=== PATIENT | female | born 1960 | race Caucasian/White ===

== ENCOUNTER 2019-05-26 21:08 | Emergency (ER) | payer BC ==
[2019-05-26] MEDS ORDERED: Sodium Chloride 0.9% 10 ML Syringe FLUSH PRN (21:19)
[2019-05-26] MEDS ORDERED: LORazepam 2 MG/ML SDV IVPUSH ONE (21:23)
--- NOTE | 2019-05-26 21:55 | EDM.PDOC ---
ED HPI GENERAL MEDICAL PROBLEM - General Chief Complaint: Neurological Problem Time Seen by Provider: 05/26/19 21:08 Source of Information: Reports: Patient, EMS, Family History Limitations: Reports: No Limitations - History of Present Illness INITIAL COMMENTS - FREE TEXT/NARRATIVE: Pt. presents to ER with complaints of numbness/tingling in upper and lower extremities and shortness of breath. Pt. states that she was on her way to [place] from [place] because she was having troubles with increased dysarthria over the past month. 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 The hemorrhage was thought to be spontaneous and resolved without intervention. Pt. had a prolonged hospitalization with ICU stay , respiratory failure, and vent weaning at [facility] in [place]. Pt. states that she feels her speech has gotten worse over the past month. She has a tremor which has gotten worse over the past month as well. She is scheduled to see neurology next week. Today, she states that she noticed numbness and tingling in her hands and feel. She states that the symptoms got worse and the patient asked her to take her to [facility] in [place] from [place], [place]. Enroute, pt. began experiencing complaints of shortness of breath and they decided to divert to our facility. Pt. states that she has been checking her blood pressure often today and feels that it is elevated higher than normal. She states that it was in the 116/80 range. Pt. denies any new focal motor weakness. Denies any headache. Again, her complaints are mentioned above, but this has been going on for at least a month. Onset: Today Onset Date: 05/26/19 Duration: Constant Associated Symptoms: Reports: Other (numbness/tingling in extremities.) - Related Data Allergies Allergy/AdvReac Type Severity Reaction Status Date / Time Sulfa (Sulfonamide Allergy Rash Verified 05/26/19 22:07 Antibiotics) ED ROS GENERAL - Review of Systems Review Of Systems: See Below Constitutional: Reports: No Symptoms. Denies: Fever, Chills, Malaise, Weakness , Fatigue HEENT: Reports: No Symptoms Respiratory: Reports: No Symptoms Cardiovascular: Reports: No Symptoms Endocrine: Reports: No Symptoms GI/Abdominal: Reports: No Symptoms : Reports: No Symptoms Musculoskeletal: Reports: No Symptoms Skin: Reports: No Symptoms Neurological: Reports: Other (numbness/tingling in upper and lower extremities consistent with carpal-pedal spasms.) Psychiatric: Reports: Agitation, Anxiety Hematologic/Lymphatic: Reports: No Symptoms Immunologic: Reports: No Symptoms ED EXAM, GENERAL - Physical Exam Exam: See Below Exam Limited By: No Limitations General Appearance: Alert, WD/WN, No Apparent Distress Eye Exam: Bilateral Eye: EOMI, Normal Fundi, Normal Inspection, PERRL Throat/Mouth: Normal Inspection, Normal Lips, Normal Teeth, Normal Gums, Normal Oropharynx, Normal Voice, No Airway Compromise Head: Atraumatic, Normocephalic Neck: Normal Inspection, Supple, Non-Tender, Full Range of Motion Respiratory/Chest: Lungs Clear, Normal Breath Sounds, No Accessory Muscle Use, Chest Non-Tender, Other (initially complaining of short of breath. Tachypnea, no other findings noted.) Cardiovascular: Normal Peripheral Pulses, Regular Rate, Rhythm, No Edema, No Murmur Peripheral Pulses: 4+: Radial (L), Radial (R), Dorsalis Pedis (L), Dorsalis Pedis (R) GI/Abdominal: Normal Bowel Sounds, Soft, Non-Tender, No Organomegaly, No Distention, No Mass (Female) Exam: Deferred Rectal (Female) Exam: Deferred Back Exam: Normal Inspection, Full Range of Motion Extremities: Normal Inspection, Normal Range of Motion, Non-Tender, No Pedal Edema, Normal Capillary Refill Neurological: Alert, Oriented, CN II-XII Intact, Normal Cognition, Normal Gait, Sensory/Motor Deficit (numbness/tingling in extremities. Remainer of neuro exam is normal. Pt. has dysarthria but this is chronic for the patient.) Psychiatric: Normal Affect, Normal Mood Skin Exam: Warm, Dry, Intact, Normal Color, No Rash Lymphatic: No Adenopathy EKG INTERPRETATION Rhythm: NSR [place]: Normal P-Wave: Present QRS: Normal ST-T: Normal QT: Normal Course - Orders/Labs/Meds Orders: Active Orders 24 hr Category Date Time Status EKG Documentation Completion [RC] STAT Care 05/26/19 21:20 Active Head wo Cont [CT] Stat Exams 05/26/19 21:21 Taken Sodium Chloride 0.9% [Saline Flush] Med 05/26/19 21:19 Active 10 ml FLUSH ASDIRECTED PRN Peripheral IV Insertion Adult [OM.PC] Routine Oth 05/26/19 21:20 Ordered Medication Orders Sodium Chloride (Saline Flush) 10 ml FLUSH ASDIRECTED PRN PRN Reason: Keep Vein Open Labs: Laboratory Tests 05/26/19 05/26/19 05/26/19 Range/Units 21:36 21:41 21:41 WBC 7.0 (4.0-10.0) x10^3/uL RBC 4.72 (4.00-5.50) x10^6/uL Hgb 14.0 (12.0-16.0) g/dL Hct 39.7 (33.0-47.0) % MCV 84.1 (78.0-93.0) fL MCH 29.7 (26.0-32.0) pg MCHC 35.3 (32.0-36.0) g/dL RDW Coeff of Filomena 13.5 (10.0-15.0) % Plt Count 308 (130-400) x10^3/uL Neut % (Auto) 54.8 (50.0-80.0) % Lymph % (Auto) 34.6 (25.0-50.0) % [place] % (Auto) 8.3 (2.0-11.0) % Eos % (Auto) 1.7 (0.0-4.0) % Baso % (Auto) 0.6 (0.2-1.2) % PT 10.5 (10.0-12.8) SEC INR 0.9 L (2.0-3.5) Sodium (136-145) mmol/L Potassium (3.5-5.1) mmol/L Chloride (98-107) mmol/L Carbon Dioxide (21-32) mmol/L Anion Gap (10-20) mmol/L BUN (7-18) mg/dL Creatinine (0.55-1.02) mg/dL Est Cr Clr Drug Dosing Estimated GFR (MDRD) Glucose (74-106) mg/dL Calcium (8.5-10.1) mg/dL Corrected Calcium (8.5-10.1) mg/dL Phosphorus (2.6-4.7) mg/dL Magnesium (1.8-2.4) mg/dL Total Bilirubin (0.2-1.0) mg/dL AST (15-37) U/L ALT (14-59) U/L Alkaline Phosphatase (46-116) U/L Troponin I (<=0.056) ng/mL C-Reactive Protein (<=0.9) mg/dL Total Protein (6.4-8.2) g/dL Albumin (3.4-5.0) g/dL Globulin Albumin/Globulin Ratio TSH, Ultra Sensitive (0.358-3.74) uIU/mL Urine Color Yellow (YELLOW) Urine Appearance Clear (CLEAR) Urine pH 7.0 (5.0-8.0) Ur Specific [place] 1.015 Urine Protein Negative (NEGATIVE) mg/dL Urine Glucose (UA) Negative (NEGATIVE) mg/dL Urine Ketones Negative (NEGATIVE) mg/dL Urine Occult Blood Negative (NEGATIVE) Urine Nitrite Negative (NEGATIVE) Urine Bilirubin Negative (NEGATIVE) Urine Urobilinogen 0.2 (0.2) EU/dL Ur Leukocyte Esterase Trace H (NEGATIVE) Urine RBC Not seen (NOT SEEN) /HPF Urine WBC 0-5 (NOT SEEN) /HPF Ur Squamous Epith Cells Few H (NEGATIVE) /HPF Urine Bacteria Rare (NEGATIVE) /HPF Urine Mucus Not seen (NEGATIVE) /LPF 05/26/19 Range/Units 21:41 WBC (4.0-10.0) x10^3/uL RBC (4.00-5.50) x10^6/uL Hgb (12.0-16.0) g/dL Hct (33.0-47.0) % MCV (78.0-93.0) fL MCH (26.0-32.0) pg MCHC (32.0-36.0) g/dL RDW Coeff of Filomena (10.0-15.0) % Plt Count (130-400) x10^3/uL Neut % (Auto) (50.0-80.0) % Lymph % (Auto) (25.0-50.0) % [place] % (Auto) (2.0-11.0) % Eos % (Auto) (0.0-4.0) % Baso % (Auto) (0.2-1.2) % PT (10.0-12.8) SEC INR (2.0-3.5) Sodium 137 (136-145) mmol/L Potassium 2.8 L* (3.5-5.1) mmol/L Chloride 97 L (98-107) mmol/L Carbon Dioxide 27 (21-32) mmol/L Anion Gap 15.8 (10-20) mmol/L BUN 8 (7-18) mg/dL Creatinine 1.1 H (0.55-1.02) mg/dL Est Cr Clr Drug Dosing TNP Estimated GFR (MDRD) 51 Glucose 107 H (74-106) mg/dL Calcium 10.2 H (8.5-10.1) mg/dL Corrected Calcium 9.88 (8.5-10.1) mg/dL Phosphorus 2.0 L (2.6-4.7) mg/dL Magnesium 1.8 (1.8-2.4) mg/dL Total Bilirubin 0.6 (0.2-1.0) mg/dL AST 20 (15-37) U/L ALT 34 (14-59) U/L Alkaline Phosphatase 102 (46-116) U/L Troponin I < 0.017 (<=0.056) ng/mL C-Reactive Protein < 0.2 (<=0.9) mg/dL Total Protein 8.1 (6.4-8.2) g/dL Albumin 4.4 (3.4-5.0) g/dL Globulin 3.7 Albumin/Globulin Ratio 1.19 TSH, Ultra Sensitive 3.372 (0.358-3.74) uIU/mL Urine Color (YELLOW) Urine Appearance (CLEAR) Urine pH (5.0-8.0) Ur Specific [place] Urine Protein (NEGATIVE) mg/dL Urine Glucose (UA) (NEGATIVE) mg/dL Urine Ketones (NEGATIVE) mg/dL Urine Occult Blood (NEGATIVE) Urine Nitrite (NEGATIVE) Urine Bilirubin (NEGATIVE) Urine Urobilinogen (0.2) EU/dL Ur Leukocyte Esterase (NEGATIVE) Urine RBC (NOT SEEN) /HPF Urine WBC (NOT SEEN) /HPF Ur Squamous Epith Cells (NEGATIVE) /HPF Urine Bacteria (NEGATIVE) /HPF Urine Mucus (NEGATIVE) /LPF Meds: Medications Generic Name Dose Route Start Last Admin Trade Name Freq PRN Reason Stop Dose Admin Sodium Chloride 10 ml 05/26/19 21:19 Saline Flush FLUSH ASDIRECTED PRN Keep Vein Open Discontinued Medications Generic Name Dose Route Start Last Admin Trade Name Mai PRN Reason Stop Dose Admin Lorazepam 1 mg 05/26/19 21:23 05/26/19 21:50 Ativan IVPUSH 05/26/19 21:24 1 mg STAT ONE Administration Potassium Chloride 40 meq 05/26/19 22:21 05/26/19 22:43 Klor-Con 10 PO 05/26/19 22:22 40 meq ONETIME ONE Administration - Radiology Interpretation Free Text/Narrative:: CT brain negative for acute pathology Departure - Departure Time of Disposition: 22:30 Disposition: Home, Self-Care 01 Condition: Good Clinical Impression: Panic attack, Hyperventilation, Hypokalemia - Discharge Information Instructions: Potassium chloride tablets, extended-release tablets or capsules , Panic Attack, [id number] Referrals: Sandra Stone MD [Primary Care Provider] - Forms: ED Department Discharge Additional Instructions: Follow-up with neurology on Wednesday. Start potassium chloride tomorrow. We will give you a dose tonight. Take your lorazepam 0.5mg every 4-6 hours as needed for anxiety. Please call or return to ER as needed. - Problem List Review Problem List Initiated/Reviewed/Updated: Yes - My Orders Last 24 Hours: My Active Orders 05/26/19 21:19 Sodium Chloride 0.9% [Saline Flush] 10 ml FLUSH ASDIRECTED PRN 05/26/19 21:20 EKG Documentation Completion [RC] STAT Peripheral IV Insertion Adult [OM.PC] Routine 05/26/19 21:21 Head wo Cont [CT] Stat - Assessment/Plan Last 24 Hours: My Active Orders 05/26/19 21:19 Sodium Chloride 0.9% [Saline Flush] 10 ml FLUSH ASDIRECTED PRN 05/26/19 21:20 EKG Documentation Completion [RC] STAT Peripheral IV Insertion Adult [OM.PC] Routine 05/26/19 21:21 Head wo Cont [CT] Stat Plan: Pt. appeared to be having severe carpal-pedal spasms secondary to hyperventilation syndrome. This was treated with IV ativan and the symptoms resolved. Pt. is safe to discharge home. She was given 40meq of potassium chloride PO in ER, and will be started on 40meq daily starting tomorrow with plan for recheck of labs next week. Advised to return to ER if she has worsening symptoms, chest pain, shortness of breath. She was advised to keep her appointment with her neurologist to discuss her chronic symptoms. All questions were answered.
[2019-05-26 22:18] LABS: CHLORIDE,CL 97 mmol/L (98-107); SODIUM,NA 137 mmol/L (136-145)
[2019-05-26 22:20] LABS: ANION GAP 15.8 mmol/L (10-20)
[2019-05-26] MEDS ORDERED: Potassium Chloride 10 MEQ Tab.ER PO ONE (22:21)
--- NOTE | 2019-05-27 11:18 | CT ---
[id number] CT/CT Head WO IV EXAM: CT Head WO IV CLINICAL DATA: STROKE PROTOCOL COMPARISON: CORRELATION IS MADE WITH THE EXAM OF MAY 15, 2019. FINDINGS: Abnormal hypodensity is seen corresponding to the left temporal region and basal ganglia. CT angiography would be helpful. Report was provided at the time of the exam. There is no hemorrhage. The aspect score is considered 5. The lentiform nucleus and insular demonstrate abnormal hypodensity. Abnormal hypodensity also seen in the left temporal region. There is no hyperdense middle cerebral artery sign. 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 Aspect score of 5. CT angiography needed. Luke Trinidad MD 05/27/19 [id number] Thank you for allowing us to participate in the care of your patient.
== END 2019-05-26 22:55 | disposition home or self-care (01) ==
LOC: VM.ED 21:08
DX: F41.0 Panic disorder [episodic paroxysmal anxiety] (principal); E87.6 Hypokalemia; Z88.2 Allergy status to sulfonamides
CPT/HCPCS: 36415; 70450; 80053; 81001; 83735; 84100; 84443; 84484; 85025; 85610; 86140; 93005; 96374; 99285; A9270; J2060